=== PATIENT | male | born 1985 | race Caucasian/White ===

== ENCOUNTER 2016-09-08 14:39 | Inpatient (IN) | payer MEDICAID ==
[~2016-09-08] VITALS: Ht 193 cm; Wt 96.2 kg
--- NOTE | ~2016-09-08 | DS ---
Unit #: [id number] #: [id number] Patient: BECKY ROMERO [id number] [facility] [address] [place] [address] [id number] MR#: [id number] NAME: BECKY ROMERO ROOM: [facility] Age: 30 Sex: M Admission Date: 09/08/2016 : 1985 Discharge Date: 09/10/2016 Attending Physician: Cheo Simmons M.D. Primary Care Physician: Primary Care Physician No DISCHARGE SUMMARY REASON FOR ADMISSION The patient is a 30-year-old white male admitted to the [facility] unit after family had been concerned that he has been abusing alcohol. HOSPITAL COURSE The patient was admitted to and placed on suicidal precautions. He was continued on previously prescribed medications including Topamax 50 mg twice daily. The patient exhibited little in the way of signs or symptoms of withdrawal apart from an elevated pulse. The elevated pulse remained in place throughout his stay in the hospital but he had no other objective or subjective symptoms of alcohol withdrawal. On 09/10 he continued to deny suicidal ideation. This physician had gently confronted the patient regarding the fact that he was either lying about his alcohol use or perhaps more ominously, he had blacked out and not recalled his alcohol use. Whatever the case the patient was agreeable with the plan for followup through the auspices of chemical dependence treatment resources and did not meet criteria for ongoing hospitalization discharge was ordered. FINAL DIAGNOSIS Alcohol use disorder, history of withdrawal seizure. DISPOSITION ON DISCHARGE The patient was discharged on the following medications: Topamax 50 mg twice daily for seizure disorder. No dietary or physical restrictions were placed on the patient at the time of discharge. Followup to take place through the auspices of community mental health resources. The patient's prognosis is considered fair. Dictated by... Cheo Simmons M.D. CB/ed TD: 09/11/2016 04:56 JOB #: [id number] Unit #: [id number] #: [id number] Patient: BECKY ROMERO DISCHARGE SUMMARY Page 1 of 1 X Cheo Simmons MD X DISCHARGE SUMMARY
--- NOTE | ~2016-09-08 | PA ---
Unit #: [id number] #: [id number] Patient: BECKY ROMERO [id number] [place] [address] [id number] MR#: [id number] NAME: BECKY ROMERO ROOM: [facility] Age: 30 Sex: M Admission Date: 09/08/2016 : 1985 Date of Assessment: 09/09/2016 Attending Physician: Cheo Simmons M.D. Admitting Physician: Cheo Simmons M.D. Primary Care Physician: Primary Care Physician No PSYCHIATRIC ASSESSMENT IDENTIFYING INFORMATION The patient is a 30-year-old white male admitted in a state of intoxication. CHIEF COMPLAINT None given. INFORMANT Patient, reliability is poor. HISTORY OF PRESENT ILLNESS The patient is a 30-year-old white male admitted after presenting to this facility in a state of intoxication. The patient was reportedly recently treated at the [facility] for substance abuse. It is his claim that he has not used alcohol since July 20, but family has been concerned about episodes which they have experienced. The patient is exhibiting slurred speech, and yesterday the patient's paramour found 2 empty vodka bottles with a receipt dated 09/05/2016. The patient's family is concerned that he is blacking out and forgetting that he has been using alcohol. When seen today, the patient claims that he came straight from the [facility] to this facility and had not used alcohol at any point. He had tested positive for alcohol yesterday per breathalyzer at 0.17 at approximately 10 a.m. PAST PSYCHIATRIC HISTORY The patient reports that he was recently discharged from the [facility] related to a history of alcohol abuse. PAST MEDICAL HISTORY The patient has a history of withdrawal seizures. MEDICATIONS Topamax, gabapentin. ALLERGIES Amoxicillin. FAMILY HISTORY Noncontributory. SOCIAL HISTORY The patient lives with his paramour. He is a college graduate. He is presently unemployed. He reports heavy alcohol use but claims not to have used since July 20. Unit #: [id number] #: [id number] Patient: BECKY ROMERO MENTAL STATUS EXAMINATION Examination at this time reveals the patient to be tall thin white male appearing stated age. He is casually dressed and groomed. He is awake, alert, and oriented in all spheres. His mood is calm, his affect constricted. Speech is generally well coherent. There are no gross deficits in memory or cognition noted. Intelligence is judged to be in the average range based on fund of knowledge. The patient is generally cooperative during interview. He is currently denying suicidal or homicidal ideation or psychotic features. Judgment and insight appear to be reasonably intact. ASSETS AND LIABILITIES The patient's assets are to be assessed. Liabilities: Lack of resources. DIAGNOSTIC IMPRESSION 1. Alcohol use disorder. 2. History of alcohol withdrawal seizures. 3. Alcoholic peripheral neuropathy. TREATMENT PLAN The patient will remain hospitalized for safety and stabilization. He is at this point exhibiting signs of withdrawal including a pulse of 142 and some other evidence of autonomic hyperactivity. Further he does seem to have some difficulty processing though this could be related to his recently having received Ativan for his withdrawal symptoms. ESTIMATED LENGTH OF STAY 5 to 7 days. Dictated by... Cheo Simmons M.D. MILAD/emerson TD: 09/09/2016 14:57 JOB #: [id number] PSYCHIATRIC ASSESSMENT Page 1 of 1 X Cheo Simmons MD X PSYCHIATRIC ASSESSMENT
--- NOTE | ~2016-09-08 | HP ---
Unit #: [id number] #: [id number] Patient: ARTURO ROMERO [id number] [place] [address] [id number] I MR#: [id number] NAME: ARTURO ROMERO ROOM: [facility] Age: 30 Sex: M Admission Date: 09/08/2016 : 1985 Attending Physician: Cheo Simmons M.D. Admitting Physician: Cheo Simmons M.D. Primary Care Physician: Primary Care Physician No HISTORY AND PHYSICAL HISTORY OF PRESENT ILLNESS Arturo is a 30-year-old male admitted on 09/08/2016 to [facility] for detox from alcohol. PAST MEDICAL HISTORY Withdrawal, seizures and neuropathy. PAST SURGICAL HISTORY None. SOCIAL HISTORY He reports a history of tobacco use and binge alcohol use but he denies any recent use. He didn't have a positive blood alcohol though. No illegal drug use. FAMILY HISTORY Noncontributory. REVIEW OF SYSTEMS CONSTITUTIONAL: No fever or chills. HEENT: Denies any sore throat, ear pain or runny nose. CARDIOVASCULAR: Denies chest pain, irregular heart rhythm or palpitations. CHEST: Denies shortness of breath or cough. No hemoptysis. GASTROINTESTINAL: Denies nausea, vomiting, diarrhea or chronic constipation. ENDOCRINE: Denies history of increased thirst or urination. No recent significant weight loss or gain. GENITOURINARY: Denies dysuria, frequency, or hematuria. SKIN: Denies any rashes. HEMATOLOGIC: Denies history of increased bleeding or bruising. MUSCULOSKELETAL: Denies any hot, swollen joints. No generalized muscle pain. NEUROLOGIC: Denies problems with vision or speech. No frequent, severe headaches. No numbness, tingling or weakness in any extremities. Denies loss of bladder or bowel control. CURRENT MEDICATIONS Topamax. ALLERGIES Amoxicillin. Unit #: [id number] #: [id number] Patient: ARTURO ROMERO PHYSICAL EXAMINATION GENERAL: Alert, oriented, in no acute distress. VITAL SIGNS: Blood pressure 135/87, heart rate 136, respirations 16. HEIGHT: 6 foot 4 inches. WEIGHT: 212 pounds. SKIN: Warm and dry without rash or lesion. HEENT: Normocephalic. TMs not viewed. Oral and nasal passages clear. Conjunctivae clear. PERRLA. EOMs intact. NECK: Supple without lymphadenopathy or thyromegaly. HEART: Regular rate and rhythm without murmur. LUNGS: Clear. ABDOMEN: Soft, nontender, without masses or hepatosplenomegaly. : Not done. EXTREMITIES: No evidence of cyanosis, clubbing or edema. Moves all without focal deficit. NEUROLOGICAL: Grossly within normal limits. Cranial Nerves: II: Visual fernandes are intact. III, IV AND : Extraocular movements are intact. Pupils are equal, round and reactive to light. V: Facial sensation is grossly normal. VII: Facial movements and expression are normal. VIII: Auditory acuity grossly intact. IX, X: Uvula is midline. Phonation is normal. XI: Patient shrugs shoulders and turns head normally. XII: Tongue protrudes in the midline. Sensory and Motor Function: Sensory and motor sensation is grossly normal. Motor: moves all extremities well. Coordination: Gait is normal. Deep Tendon Reflexes: Intact. IMPRESSION 1. Psychiatric admission. 2. Withdrawal seizures. 3. Neuropathy. RECOMMENDATIONS Psychiatric, per psychiatrist. MEDICAL: I see no contraindications to participating in facility's activities. MEDICAL PROGNOSIS Good. MEDICAL CONDITION Stable. Dictated by... Netta Del Rio TD: 09/10/2016 01:25 JOB #: [id number] Unit #: [id number] #: [id number] Patient: ARTURO ROMERO HISTORY AND PHYSICAL Page 1 of 1 X MIRTA OLIVARES APRN X HISTORY AND PHYSICAL
[2016-09-09 09:53] LABS: BASOPHIL% 0.4 % (0-2.5); EOSINOPHIL# 0.1 X10e3 (0-0.7); EOSINOPHIL% 2.5 % (0.0-7.0); HEMATOCRIT 38.3 % (38.0-50.0); HEMOGLOBIN 13.2 gm/dL (13.0-16.0); LYMPHOCYTE# 1.9 X10e3 (1.0-3.5); LYMPHOCYTE% 31.7 % (17.0-45.0); MEAN CELL VOLUME 101.6 FL (83-96); MEAN CORPUSCULAR HEMOGLOBIN 34.9 PG (28-34); MEAN CORPUSCULAR HGB CONC 34.4 g/dL (30-36); MEAN PLATELET VOLUME 6.9 FL (6.5-11.5); MONOCYTE# 0.5 X10e3 (0-1.0); MONOCYTE% 8.3 % (3.0-12.0); NEUTROPHIL# 3.4 X10e3 (1.5-7.1); NEUTROPHIL% 57.1 % (40-75); PLATELET COUNT 143 X10e3 (140-420); RED BLOOD COUNT 3.77 X10e (3.90-5.60); RED CELL DISTRIBUTION WIDTH 16.2 % (11.0-15.5); WHITE BLOOD COUNT 5.9 X10e3 (4.0-10.5)
[2016-09-09 10:05] LABS: ALBUMIN SERUM 3.7 g/dL (3.5-5.0); BUN/CREATININE RATIO 11.66; CALCIUM SERUM 8.9 mg/dL (8.4-10.2); CREATININE SERUM 0.6 mg/dL (0.6-1.4); DIFF IND NO; POTASSIUM 3.4 mmol/L (3.5-5.1); PROTEIN TOTAL SERUM 6.4 g/dL (6.0-8.3)
[2016-09-10 09:59] LABS: URINE APPEARANCE CLOUDY; URINE BLOOD NEG (NEG); URINE COLOR DK YELLOW; URINE GLUCOSE NEG (NEG); URINE KETONE NEG (NEG); URINE LEUKOCYTE ESTERASE NEG (NEG); URINE NITRATE NEG (NEG); URINE PH 8.5 (5-8); URINE PROTEIN TRACE (NEG); URINE SPECIFIC GRAVITY 1.027 (1.003-1.035)
[2016-09-10 10:15] LABS: URINE BILIRUBIN NEG (NEG)
[2016-09-10 10:43] LABS: AMPHETAMINE NEG (NEG); BARBITURATES NEG (NEG); BENZODIAZEPINES POS (NEG); COCAINE NEG (NEG); MARIJUANA NEG (NEG); OPIATES POS (NEG); TRICYCLIC ANTIDEPRESSANTS NEG (NEG); U METHADONE NEG (NEG)
== END 2016-09-10 16:25 | disposition hospice, home (50) | DRG 897 ==
LOC: P1E 17:59
PROVIDERS: Specialist
DX: F10.229 Alcohol dependence with intoxication, unspecified (principal); F10.239 Alcohol dependence with withdrawal, unspecified; G62.1 Alcoholic polyneuropathy
CPT/HCPCS: 80053; 80307; 81003; 85025; 86592